=== PATIENT | male | born 1975 ===

== ENCOUNTER 2022-05-06 05:45 | Day surgery (SDC) | payer OTHER ==
[~2022-05-06] VITALS: Ht 170.2 cm; Wt 74.8 kg
== END 2022-05-06 14:10 | disposition home or self-care (01) ==
LOC: CIR.AMB 05:45
PROVIDERS: ATTEND Specialist
DX: K40.90 Unilateral inguinal hernia, without obstruction or gangrene, not specified as recurrent (principal); Z20.822 Contact with and (suspected) exposure to COVID-19